=== PATIENT | female | born 1970 | race Two or more races ===

== ENCOUNTER → 2024-10-17 | Outpatient (CLI) | payer MEDICAID, SELFPAY ==
--- NOTE | 2024-10-17 10:15 | XR_ITS ---
Examination: Breast ultrasound complete, bilateral Date and time of exam: October 17, 2024 1032 hours INDICATIONS: Bilateral breast pain beginning one month ago Technique: Real-time grayscale ultrasonographic imaging bilateral breasts, including all 4 quadrants as well as nipple retroareolar and axillary regions. Findings: Sonographic images right breast No cystic or solid mass Sonographic images left breast 1:00 cyst 7 x 6 mm No solid nodules IMPRESSION: BI-RADS Category 2: Benign findings
--- NOTE | 2024-10-17 11:30 | XR_ITS ---
Examination: Diagnostic digital mammography, bilateral Computer aided detection 3-D breast Tomosynthesis, bilateral Date and time of exam: October 17, 2024 1046 hours Compared to mammograms dating to July 25, 2016 INDICATIONS: Bilateral nipple lumps 20 years on the right one year on the left Technique: Nonmagnified MLO, CC views of the breasts to been obtained, reconstructed from 3-D Tomosynthesis images. R2 computer aided detection program utilized for evaluation of suspicious masses and/or abnormal calcifications. 3-D Tomosynthesis images obtained. Findings: The breasts are heterogeneously dense, which may obscure small masses Benign calcifications No interval suspicious masses Impression: BI-RADS Category 2: Benign findings Recommend yearly follow-up mammography Repeat the bilateral breast sonography in 6 months if symptoms persist
== END | disposition home or self-care (01) ==
PROVIDERS: PCP Physician Assistant; Referring Provider Physician Assistant; Visit Provider Physician Assistant
DX: R92.323 Mammographic fibroglandular density, bilateral breasts (principal); R92.1 Mammographic calcification found on diagnostic imaging of breast
CPT/HCPCS: 76641; 77062; 77066; G0279

== ENCOUNTER 2024-12-31 16:36 | Emergency (ER) | payer MEDICAID, SELFPAY ==
[2024-12-31 16:46] VITALS: BP 134/79; PULSE 89; RESP 16; TEMP 36.8; O2SAT 100
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
[2024-12-31 17:03] VITALS: PULSE 113; RESP 18; O2SAT 98; BMI 27.3
== END 2024-12-31 17:09 | disposition home or self-care (01) ==
PROVIDERS: Emergency Provider Emergency Medicine
DX: S29.012A Strain of muscle and tendon of back wall of thorax, initial encounter (principal); V53.5XXA Driver of pick-up truck or van injured in collision with car, pick-up truck or van in traffic accident, initial encounter
CPT/HCPCS: 99283

== ENCOUNTER 2025-03-25 16:47 | Emergency (ER) | payer MEDICAID, SELFPAY ==
[2025-03-25 16:48] VITALS: BMI 25.3
[2025-03-25 16:59] VITALS: BP 136/87; PULSE 89; RESP 18; TEMP 36.9; O2SAT 99
--- NOTE | 2025-03-25 17:03 | PD.EDSKIN ---
ED Skin Abcess FB-RME/HPI General Chief complaint: Skin/Abscess/Foreign Body Stated complaint: RASH TO RT FLANK WRAPPING AROUND TO ABD. X8 DAYS Time Seen by Provider: 03/25/25 16:54 Arrival date/time: 03/25/25 16:47 54-year-old female presents to the emergency department today complaints of a rash ongoing x 8 days to the right flank region. Patient reports no fever nausea vomiting patient reports rash is painful itching and burning patient reports he saw her primary care doctor yesterday and started on valacyclovir Limitations: no limitations Related Data Previous Rx's ?Medication ?Instructions ?Recorded ibuprofen 600 mg tablet 600 mg PO Q6HR PRN PAIN #25 tabs 10/30/16 hydrocodone 5 mg-acetaminophen 325 1 tab PO BID PRN pain #10 tabs 03/25/25 mg tablet prednisone 10 mg tablet 30 mg (3 x 10 mg) PO BID 3 days 03/25/25 #18 tabs Allergies Allergy/AdvReac Type Severity Reaction Status Date / Time No Known Allergies Allergy Verified 03/25/25 16:50 Review of Systems Review of Systems Systems Reviewed: All systems reviewed, normal except as documented Constitutional Constitutional: Reports system reviewed and no additional complaints, except as documented, Denies fever(s) and Denies headache(s) Eyes Eyes: Reports system reviewed and no additional complaints, except as documented and Denies blurry vision ENT Ears, Nose, Mouth, and Throat: Reports system reviewed and no additional complaints, except as documented, Denies headache(s), Denies nasal congestion and Denies nasal discharge Cardiovascular Cardiovascular: Reports system reviewed and no additional complaints, except as documented, Denies chest pain and Denies dyspnea Respiratory Respiratory: Reports system reviewed and no additional complaints, except as documented, Denies chest congestion, Denies cough and Denies dyspnea Gastrointestinal Gastrointestinal: Reports system reviewed and no additional complaints, except as documented and Denies abdominal pain Integumentary/Breasts Skin/Breast: Reports system reviewed and no additional complaints, except as documented and Denies rash Neurologic Neurologic: Reports system reviewed and no additional complaints, except as documented, Reports as per HPI and Denies headache(s) Past Medical History Past Medical History CARDIAC: Negative Congestive Heart Failure RESPIRATORY: Negative Chronic Obstructive Pulmonary Disease (COPD) GENITOURINARY: Negative Renal Disease ENDOCRINE: Negative Diabetes Mellitus Type 1 or Diabetes Mellitus Type 2 Social History SMOKING STATUS: Never smoker ED Exam General Limitations: Present no limitations General appearance: Present alert and in no apparent distress Head Head exam: Present atraumatic Eye Eye exam: Present normal appearance, PERRL and EOMI; Absent conjunctival injection ENT ENT exam: Present normal exam, normal oropharynx and mucous membranes moist Neck Neck exam: Present normal inspection, full ROM and trachea midline Chest Chest inspection: Present normal inspection and symmetric chest wall rise Respiratory Respiratory exam: Present normal lung sounds bilaterally; Absent respiratory distress Cardiovascular Cardiovascular exam: Present regular rate, normal rhythm and normal heart sounds Abdominal Exam Abdominal exam: Present soft and normal bowel sounds; Absent distention, tenderness, guarding, rebound or rigidity Extremities Exam Extremities exam: Present normal inspection and full ROM Back Exam Back exam: Present normal inspection and full ROM Neurological Exam Neurological exam: Present alert, oriented X3 and CN II-XII intact Psychiatric Psychiatric exam: Present normal affect and normal mood Skin Skin exam: Present warm, dry, intact and normal color Course Quality Measures none Orders Category Date Time Status Ketorolac Inj [Toradol Inj] Med 03/25/25 17:05 Discontinued 30 mg IM X1 ONE Vital Signs Vital signs: Vital Signs Temperature 98.5 F 03/25/25 16:59 Pulse Rate 89 03/25/25 16:59 Respiratory Rate 18 03/25/25 16:59 Blood Pressure 136/87 H 03/25/25 16:59 Pulse Oximetry (%) 99 03/25/25 16:59 Oxygen Delivery Method Room Air 03/25/25 16:59 O2 saturation 99% r.a WNL Skin / Abscess / Foreign Body MDM Narrative MDM Narrative:: 54-year-old female presents to the emergency department today complaints of a rash ongoing x 8 days to the right flank region. Patient reports no fever nausea vomiting patient reports rash is painful itching and burning patient reports he saw her primary care doctor yesterday and started on valacyclovir On exam patient has shingles patient be treated with a course of steroids and [place] Patient instructed to continue take the valacyclovir Patient given injection of Toradol for pain Patient discharged home in no distress to follow-up with primary care doctor in the next 24 to 48 hours and for any worsening symptoms to return to the ER immediately Patient data External records reviewed:: [facility] previous records Clinical information provided by:: patient Social determinants that could affect healthcare access:: none Patient has the following chronic illnesses:: None How is presenting disease/condition affected by chronic disease/condition?: no chronic disease Evaluation data The following diagnostics were reviewed and interpreted by me:: other (specify) Lab and/or radiology exams considered but not ordered:: Consider not ordered Interpretation Summary: N/A Medications / Prescriptions Medications or Prescriptions considered but not ordered:: Given Medication administrations:: Medication Administration History Discontinued Medications Ketorolac Tromethamine (Ketorolac Inj 30 Mg/Ml Vial) 30 mg IM X1 ONE Stop: 03/25/25 17:06 Last Admin: 03/25/25 17:11 Dose: 30 mg Documented By: Given Consultations Consultation(s) initiated? (list below): No Diagnosis Skin/Abscess Differential Diagnosis: abscess of skin or subcutaneous tissue, cellulitis and other (Herpes zoster) Most likely diagnosis given after review of the tests above:: Shingles Admission Indicated Admission indicated?: not indicated Admission Request Was there a request for admission?: No Disposition Plan Disposition Plan: Discharge Discharge Attestation Discharge Attestation: The patient and all family members were given an opportunity to ask questions and understood the discharge instructions. Discharge instructions specifically effects, indications for sooner follow up or return to the emergency department, and the expected course of current diagnosis. Patient condition: Stable Discharge Plan Plan Patient Disposition: HOME (Self Care) Discharge Disposition comment: stable Prescriptions/Referrals Prescriptions/Med Rec: New prednisone 10 mg tablet 30 mg PO BID 3 Days Qty: 18 0RF hydrocodone-acetaminophen 5-325 mg tablet 1 tab PO BID MDD 10 PRN (Reason: pain) Qty: 10 0RF No Action ibuprofen 600 MG tablet 600 mg PO Q6HR PRN (Reason: PAIN) Qty: 25 0RF Problem List Clinical Impression: Shingles Patient/Caregiver Discharge Instructions Education Materials: ED Shingles (Herpes Zoster) Additional Instructions: Please follow up with your primary care doctor in the next 24-48hrs for any worsening symptoms return here immediately Take medications prescribed by your doctor and can use the medications I prescribed as well Print Language: [place] Stand Alone Forms: Elana Award Info., Patient Portal Info Letter PA/KNIFE GRINDER Supervising Physician PA/KNIFE GRINDER Supervising Physician: Dr. Cordova
[2025-03-25] MEDS: KETOROLAC INJ 30 MG/ML VIAL IM (17:11)
== END 2025-03-25 17:25 | disposition home or self-care (01) ==
LOC: SERX 17:18
PROVIDERS: Emergency Provider Emergency Medicine; PCP Family Medicine
DX: B02.9 Zoster without complications (principal)
CPT/HCPCS: 96372; 99283; J1885

== ENCOUNTER 2025-08-27 19:15 | Emergency (ER) | payer MEDICAID, SELFPAY ==
[2025-08-27 19:59] VITALS: BP 113/72; PULSE 80; RESP 18; TEMP 37.4; O2SAT 99
--- NOTE | 2025-08-27 20:13 | EKG_ITS ---
[facility] Test Date: 2025-08-27 Pat Name: CHITRA PHAM Department: Room: - Gender: Female Sap Technical Developer: : [id number] Requested By: Arash Umanzor Order Number: [id number] Reading MD: Arash Umanzor Measurements Intervals Martin Rate: 81 P: 12 NC: 116 QRS: 24 QRSD: 88 T: 36 QT: 365 QTc: 424 Interpretive Statements SINUS RHYTHM WITH SHORT NC INTERVAL LOW QRS VOLTAGE IN PRECORDIAL LEADS [QRS DEFLECTION < 1.0 mV IN CHEST LEADS] POSSIBLE RIGHT VENTRICULAR CONDUCTION DELAY [RSR (QR) IN V1/V2] No previous ECG available for comparison /store/[email or web address]/[id number]
--- NOTE | 2025-08-27 20:16 | PD.EDNV ---
Nausea/Vomit./Diarrhea-RME/HPI General Chief complaint: Abdominal Pain Stated complaint: ABD PAIN Time Seen by Provider: 08/27/25 19:52 Source: patient, RN notes reviewed and old records reviewed Arrival date/time: 08/27/25 19:15 Mode of arrival: ambulatory Limitations: no limitations RME / HPI RME / HPI Narrative: 55yof presents to ED for 2-day history of nausea, vomiting and diarrhea. Son currently has similar symptoms. Patient c/o epigastric abdominal pain. No fever, shortness of breath, chest pain, blood in stool/vomit or urinary symptoms reported. Patient has taken Tylenol with little relief. Related Data Previous Rx's ?Medication ?Instructions ?Recorded ibuprofen 600 mg tablet 600 mg PO Q6HR PRN PAIN #25 tabs 10/30/16 hydrocodone 5 mg-acetaminophen 325 1 tab PO BID PRN pain #10 tabs 03/25/25 mg tablet dicyclomine 20 mg tablet 20 mg PO QID PRN abdominal pain 08/27/25 #30 tabs famotidine 40 mg tablet (Pepcid) 40 mg PO QDAY #20 tabs 08/27/25 ibuprofen 600 mg tablet 600 mg PO Q6H PRN pain #30 tabs 08/27/25 ondansetron 4 mg disintegrating 4 mg PO Q6H PRN nausea and 08/27/25 tablet vomiting #10 tabs Allergies Allergy/AdvReac Type Severity Reaction Status Date / Time No Known Allergies Allergy Verified 08/27/25 19:16 Review of Systems Review of Systems Systems Reviewed: All systems reviewed, normal except as documented Constitutional Constitutional: Denies chills and Denies fever(s) Cardiovascular Cardiovascular: Denies chest pain and Denies dyspnea Respiratory Respiratory: Denies dyspnea Gastrointestinal Gastrointestinal: Reports abdominal pain, Reports loose stools, Reports nausea and Reports vomiting Genitourinary Genitourinary: Denies dysuria and Denies flank pain Past Medical History Past Medical History ENDOCRINE: Positive Hypothyroidism Surgical History SURGICAL: Positive Section Social History SMOKING STATUS: Never smoker SUBSTANCE USE: does not use ALCOHOL: Never ED Exam General Limitations: Present no limitations General appearance: Present alert and in no apparent distress Head Head exam: Present atraumatic and normocephalic Eye Eye exam: Present normal appearance, PERRL and EOMI ENT ENT exam: Present normal exam and mucous membranes moist Neck Neck exam: Present normal inspection and full ROM Chest Chest inspection: Present normal inspection and symmetric chest wall rise Respiratory Respiratory exam: Present normal lung sounds bilaterally; Absent respiratory distress Cardiovascular Cardiovascular exam: Present regular rate and normal rhythm Abdominal Exam Abdominal exam: Present soft and tenderness (Mild, epigastric); Absent distention, guarding or rebound Extremities Exam Extremities exam: Present normal inspection and full ROM Back Exam Back exam: Absent CVA tenderness (R) or CVA tenderness (L) Neurological Exam Neurological exam: Present alert and oriented X3 Psychiatric Psychiatric exam: Present normal affect and normal mood Skin Skin exam: Present warm, dry, intact and normal color Course Quality Measures none Orders Category Date Time Status EKG (ED ONLY) *Do not use* NOW Care 08/27/25 20:14 Completed EKG (ED Only) Stat Exams 08/27/25 20:13 Draft CBC Stat Lab 08/27/25 20:27 Completed CMP [Comprehensive Metabolic Panel] Stat Lab 08/27/25 20:27 Completed Lipase Stat Lab 08/27/25 20:27 Completed Troponin I Stat Lab 08/27/25 20:27 Completed UA [Urinalysis] Stat Lab 08/27/25 20:17 Completed Ketorolac Inj [Toradol Inj] Med 08/27/25 20:29 Discontinued 30 mg IM X1 ONE Ondansetron Odt [Zofran Odt] Med 08/27/25 20:29 Discontinued 4 mg PO X1 ONE Vital Signs Vital signs: Vital Signs Temperature 99.3 F 08/27/25 19:59 Pulse Rate 80 08/27/25 19:59 Respiratory Rate 18 08/27/25 19:59 Blood Pressure 113/72 08/27/25 19:59 Pulse Oximetry (%) 99 08/27/25 19:59 Oxygen Delivery Method Room Air 08/27/25 19:59 PROCEDURES: EKG Interpretation #1: Date of EK08/27/25 Time of EK:20 Rate: 81 Interpretation: Interpreted by me EKG Impression: Normal sinus rhythm, No acute ST-T changes, No ectopy, No ischemic changes, Normal QRS and Normal axis Additional EKG comment: Short AK interval 112 No stemi Nausea/Vomiting/Diarrhea MDM Narrative MDM Narrative:: 55yof presents to ED for 2-day history of nausea, vomiting and diarrhea. Son currently has similar symptoms. Patient c/o epigastric abdominal pain. No fever, shortness of breath, chest pain, blood in stool/vomit or urinary symptoms reported. Patient has taken Tylenol with little relief. Patient reassessed. She is feeling better, symptoms improved, tolerating po. ED workup reassuring. Encouraged adequate fluids, symptomatic treatment prn. Stable for dc, RTED precautions given. Patient data External records reviewed:: [facility] previous records (03/25/2025 ED visit for shingles) Clinical information provided by:: patient Social determinants that could affect healthcare access:: other (specify) (Poor access to healthcare, unemployed) Patient has the following chronic illnesses:: Hypothyroid How is presenting disease/condition affected by chronic disease/condition?: uneffected by Evaluation data The following diagnostics were reviewed and interpreted by me:: lab results and EKG tracing(s) Lab and/or radiology exams considered but not ordered:: CT abdomen/pelvis: Nonsurgical abdomen on exam Interpretation Summary: No leukocytosis No anemia LFTs and lipase wnl Negative trop UA -leuks/nitrites, -ketones Medications / Prescriptions Medications / Prescriptions considered but not ordered:: No antibiotics recommended at this time Medication administrations:: Medication Administration History Discontinued Medications Ketorolac Tromethamine (Ketorolac Inj 30 Mg/Ml Vial) 30 mg IM X1 ONE Stop: 08/27/25 20:30 Last Admin: 08/27/25 20:40 Dose: 30 mg Documented By: LUPE Ondansetron HCl (Ondansetron Odt 4 Mg Tabrap) 4 mg PO X1 ONE; Protocol Stop: 08/27/25 20:30 Last Admin: 08/27/25 20:40 Dose: 4 mg Documented By: LUPE Above medications administered in ED Consultations Consultation(s) initiated? (list below): No Diagnosis Nausea Differential Diagnosis: other (Gastroenteritis, food poisoning, dehydration, electrolyte imbalance, gastritis, PUD, cholelithiasis, cholecystitis) Most likely diagnosis given after review of the tests above:: Gastroenteritis, epigastric pain Admission Indicated Admission indicated?: not indicated Admission Request Was there a request for admission?: No Disposition Plan Disposition Plan: Discharge Discharge Attestation Discharge Attestation: The patient and all family members were given an opportunity to ask questions and understood the discharge instructions. Discharge instructions specifically effects, indications for sooner follow up or return to the emergency department, and the expected course of current diagnosis. Patient condition: Stable Discharge Plan Plan Patient Disposition: HOME (Self Care) Patient condition on transfer: Stable Prescriptions/Referrals Prescriptions/Med Rec: New ondansetron 4 mg tablet,disintegrating 4 mg PO Q6H PRN (Reason: nausea and vomiting) Qty: 10 0RF famotidine [Pepcid] 40 mg tablet 40 mg PO QDAY Qty: 20 0RF dicyclomine 20 mg tablet 20 mg PO QID PRN (Reason: abdominal pain) Qty: 30 0RF ibuprofen 600 mg tablet 600 mg PO Q6H PRN (Reason: pain) Qty: 30 0RF No Action ibuprofen 600 MG tablet 600 mg PO Q6HR PRN (Reason: PAIN) Qty: 25 0RF hydrocodone-acetaminophen 5-325 mg tablet 1 tab PO BID MDD 10 PRN (Reason: pain) Qty: 10 0RF Referrals: No Primary/Family,Physician [Primary Care Provider] - In 1 week Problem List Clinical Impression: Gastroenteritis, Epigastric abdominal pain Patient/Caregiver Discharge Instructions Education Materials: ED Gastroenteritis, Viral (Adult) Additional Instructions: Ensure to get plenty of rest and stay hydrated, drink plenty of fluids. Follow-up with primary care physician as needed. Print Language: Turkmen Stand Alone Forms: Elana Award Info., Patient Portal Info Letter PA/FLY RAIL OPERATOR Supervising Physician POLLY/FLY RAIL OPERATOR Supervising Physician: Ankur
[2025-08-27] MEDS: ONDANSETRON ODT 4 MG TABRAP PO (20:40)
[2025-08-27] MEDS: KETOROLAC INJ 30 MG/ML VIAL IM (20:40)
[2025-08-27 20:53] LABS: Basophils # (Auto) 0.0 Thou/mm3 (0.0-0.2); Basophils % (Auto) 0 % (0-2.5); Eosinophils # (Auto) 0.1 Thou/mm3 (0.0-0.5); Eosinophils % (Auto) 2 % (0-10); Hematocrit 43.8 % (36.0-46.0); Hemoglobin 14.7 g/dL (12.0-16.0); Immature Granulocytes Auto 0.01 Thou/mm3 (0.00-0.00); Lymphocytes # (Auto) 0.6 Thou/mm3 (1.0-4.8); Lymphocytes % (Auto) 15 % (10-50); Mean Corpuscular HGB Conc 33.6 g/dl (31.0-37.0); Mean Corpuscular Hemoglobin 29.4 pg (25.0-35.0); Mean Corpuscular Volume 88 fL (80-100); Monocytes # (Auto) 0.4 Thou/mm3 (0.0-0.8); Monocytes % (Auto) 11 % (0-12); Neutrophils # (Auto) 2.9 Thou/mm3 (1.8-7.7); Neutrophils % (Auto) 72 % (37-80); Nucleated Red Blood Cell # 0.00 Thou/mm3 (0.00-0.00); Nucleated Red Blood Cell % 0 /100 WBC (0); Platelet Count 175 Thou/mm3 (140-440); RDW Standard Deviation 43.2 fL (36.4-46.3); Red Blood Count 5.00 Miln/mm3 (4.00-5.20); White Blood Count 4.0 Thou/mm3 (3.6-11.0)
[2025-08-27 21:01] LABS: Alanine Aminotransferase 25 U/L (10-49); Albumin, Serum 4.7 gm/dL (3.5-5.0); Albumin/Globulin Ratio 1.7 (1.2-2.2); Alkaline Phosphatase 48 U/L (46-116); Anion Gap 8 (7-16); Aspartate Amino Transferase 26 U/L (0-34); BUN/Creatinine Ratio 19 Ratio (12-20); Bilirubin,Total 0.5 mg/dL (0.3-1.2); Blood Urea Nitrogen 13 mg/dL (9-23); Calcium 9.6 mg/dL (8.3-10.6); Calcium (Corrected) 9.6 mg/dL (8.5-10.1); Carbon Dioxide 30.6 mMol/L (20.0-31.0); Chloride 104 mMol/L (98-107); Creatinine (Component) 0.7 mg/dL (0.6-1.3); Globulin 2.7 gm/dL (2.3-3.5); Glucose 83 mg/dL (74-106); Lipase 29 U/L (12-53); Osmolality,Calculated 284 (275-295); Potassium 3.7 mMol/L (3.4-5.1); Sodium 143 mMol/L (136-145); Total Protein 7.4 gm/dL (5.7-8.2); Troponin I < 0.002 ng/mL (0.0-0.045); eGFR > 60 See Note
[2025-08-27 21:10] LABS: Collection Type, Urine Clean Catch; Squamous Epithelial Cell,Urine 0 /hpf (0-5)
[2025-08-27 21:52] LABS: Bilirubin,Urine Negative (Negative); Blood,Urine Negative (Negative); Clarity,Urine Clear (Clear/Hazy); Color,Urine Lt-Yellow (Lt Yel-Yel); Glucose, Urine Negative (Negative); Ketones,Urine Negative (Negative); Leukocyte Esterase,Urine Negative (Negative); Nitrite,Urine Negative (Negative); PH,Urine 6.5 (5.0-7.0); Protein,Urine Negative (Neg - Trace); RBC,Urine < 1 /hpf (0-3); Specific Gravity,Urine 1.016 (1.001-1.035); Urobilinogen,Urine Negative mg/dL (0.0-1.0); WBC,Urine 2 /hpf (0-5)
== END 2025-08-27 22:12 | disposition home or self-care (01) ==
PROVIDERS: Physician Assistant; Emergency Provider Emergency Medicine
DX: A08.4 Viral intestinal infection, unspecified (principal)
CPT/HCPCS: 36415; 80053; 81001; 83690; 84484; 85025; 93005; 96372; 99283; J1885; Q0162